=== PATIENT | female | born 1945 | race Caucasian/White ===

== ENCOUNTER 2017-07-17 15:26 | Emergency (ER) | payer OTHER ==
[~2017-07-17] VITALS: Ht 177.8 cm; Wt 64.5 kg
[2017-07-17 15:28] VITALS: BP 119/76
[2017-07-17] MEDS ORDERED: LORazepam 1MG TABLET PO ONE (16:30)
[2017-07-17] MEDS ORDERED: LORazepam 1MG TABLET ONE (16:32)
== END 2017-07-17 17:41 | disposition home or self-care (01) ==
LOC: ED 17:35
DX: K62.3 Rectal prolapse (principal)
CPT/HCPCS: 99284